=== PATIENT | male | born 1990 | race Caucasian/White ===

== ENCOUNTER 2023-06-19 17:48 | Observation (INO) | payer OTHER, SELFPAY ==
[2023-06-19] VITALS (18 sets, daily range): BP systolic 135–156; BP diastolic 86–90; PULSE 76–116; RESP 16–22; TEMP 37–37.7; O2SAT 94–99; BMI 31.7; BMI 33.5
--- NOTE | 2023-06-19 17:51 | ECG_ITS ---
[facility] Test Date: 2023-06-19 Pat Name: Greg Khan Department: Room: - Gender: Male [employer]: : 1990 Requested By: [id number] Order Number: [id number] Reading MD: ROSA M ESPINOSA Measurements Intervals [place] Rate: 94 P: 53 IN: 118 QRS: 54 QRSD: 98 T: 42 QT: 342 QTc: 394 Interpretive Statements 1100 Sinus rhythm 2210 Short IN interval Non-Specific T wave inversion in III 9150 abnormal ECG No previous ECG available for comparison Electronically Signed On 06-20-2023 5:43:51 EDT by ROSA M ESPINOSA
--- NOTE | 2023-06-19 17:53 | ED_ITS ---
HPI - Overdose General Chief Complaint: Altered Mental Status Stated Complaint: altered-intoxication Time Seen by Provider: 06/19/23 17:51 Source: patient Mode of arrival: ambulance History of Present Illness HPI Narrative: patient is a 32-year-old male who presents to the emergency department by ambulance after his parents called 911 on finding him unresponsive on returning to the home. Parents reported to EMS that the patient was unresponsive but on EMS arrival, patient is awake, answering questions and reports drinking a significant amount of liquor today. He states he is a daily drinker. He denies using any drugs. He denies any suicidal ideation. He denies any falls or injuries. He has no pain at this time. He is cooperative on arrival to the Emergency Room. he is visibly intoxicated and smells of alcohol. Related Data Previous Rx's Medication Instructions Recorded clonidine HCl 0.1 mg tablet 0.1 mg PO BID #20 tabs 06/20/23 hyoscyamine sulfate 0.125 mg 0.125 mg PO ACHS PRN abdominal 06/20/23 sublingual tablet pain #20 tabs ondansetron 4 mg disintegrating 4 mg PO Q6H PRN nausea and 06/20/23 tablet vomiting #20 tabs Allergies Allergy/AdvReac Type Severity Reaction Status Date / Time Penicillins AdvReac Unknown Verified 06/19/23 17:53 Review of Systems ROS Constitutional Denies: fever or chills Cardiovascular Denies: chest pain Respiratory Denies: shortness of breath Gastrointestinal Denies: vomiting Integumentary/Breast Denies: rash Hematologic/Lymphatic Denies: easy bruising PFSH PFS Medical History (Updated 06/24/23 @ 00:00 by ) Family History (Updated 06/19/23 @ 22:09 by Nicky Scott) Mother No problems noted. Other Abuse, drug or alcohol Social History (Updated 06/20/23 @ 01:52 by Nicky Scott) Within the past year, how often did you have a drink containing alcohol: monthly or less Within the past year, how many standard drinks containing alcohol did you have on a typical day: 1 or 2 Within the past year, how often did you have six or more drinks on one occasion: monthly Total score: 2 Score interpretation: A score less than 4 is consistent with normal alcohol consumption. Do you use any of these nicotine containing products: smokeless tobacco Non-prescribed substance use: denies use Highest level of school completed/degree received: high school graduate Are you now , , , , never or living with a partner: don't know Little interest or pleasure in doing things: several days Feeling down, depressed, or hopeless: several days Feel stressed/tense/nervous/anxious/difficulty sleeping: rather much Life stressors: other Life stressor details: son not able to see Exam Narrative Exam Narrative: Gen.: Awake, alert, in no distress Head: Normocephalic, atraumatic ENT: Moist mucous membranes Respiratory: No respiratory distress Cardio: Regular rate and rhythm Extremities: Moves extremities equally, no injuries noted Psych: cooperative Neuro: slurred speech, no unilateral weakness noted. Patient is able to transfer himself from EMS prior to exam cart Skin: Warm, dry, intact Constitutional Vital Signs, click to edit/add: Last Vital Signs Temp 98.2 F 06/20/23 06:00 Pulse 81 06/20/23 07:52 Resp 18 06/20/23 06:00 BP 146/69 H 06/20/23 06:00 Pulse Ox 95 06/20/23 06:00 O2 Del Method Room Air 06/20/23 06:00 Course Vital Signs Vital signs: Vital Signs Pulse Rate 100 H 06/19/23 17:50 Respiratory Rate 18 06/19/23 17:50 Blood Pressure 135/86 06/19/23 17:50 Pulse Oximetry 95 06/19/23 17:50 Oxygen Delivery Method Room Air 06/19/23 17:50 Temperature 98.2 F 06/20/23 06:00 Pulse Rate 81 06/20/23 07:52 Respiratory Rate 18 06/20/23 06:00 Blood Pressure 146/69 H 06/20/23 06:00 Pulse Oximetry 95 06/20/23 06:00 Oxygen Delivery Method Room Air 06/20/23 06:00 MDM - Overdose MDM Narrative Medical decision making narrative: patient treated with IV fluids in the Emergency Room, CT of the brain was obtained, reviewed by the radiologist with no evidence of acute process. Lab studies show elevated lactic acid and elevated ethanol level at 392, patient will require multiple hours of observation and IV fluids before he is sober enough to be discharged to her response will alliance party. Discussed with Dr. Rivera who accepted the admission to [facility], telemetry. Patient is stable and agreeable at time of admission. Reevaluated by attending physician prior to admission. He maintains normal oxygen saturation, he had no deterioration of his mental status in the Emergency Room. Medical Records Attestation: I reviewed the patient's medical records. Lab Data Attestation: I reviewed the patient's lab results. Labs: Lab Results 06/19/23 Range/Units 17:57 WBC 9.3 (4.0-11.0) 10^3/uL RBC 6.02 (4.70-6.10) 10^6/uL Hgb 18.4 H (14.0-18.0) g/dL Hct 49.6 (42.0-54.0) % MCV 82.4 (80.0-94.0) fL MCH 30.6 (25.9-34.0) pg MCHC 37.1 H (29.9-35.2) g/dL RDW 11.6 (11.0-15.0) % Plt Count 247 (150-450) 10^3/uL MPV 8.6 L (9.5-13.5) fL Neut % (Auto) 74.8 (43.0-75.0) % Lymph % (Auto) 20.1 L (20.5-60.0) % Mason % (Auto) 4.0 (1.7-12.0) % Eos % (Auto) 0.1 L (0.9-7.0) % Baso % (Auto) 0.6 (0.2-2.0) % Neut # (Auto) 6.9 H (1.4-6.5) 10^3/uL Lymph # (Auto) 1.9 (1.2-3.8) 10^3/uL Mason # (Auto) 0.4 (0.3-0.8) 10^3/uL Eos # (Auto) 0.0 (0.0-0.7) 10^3/uL Baso # (Auto) 0.1 (0.0-0.1) 10^3/uL Abs Immat Gran (auto) 0.04 H (0.00-0.03) 10^3/uL Imm/Tot Granulo (auto) 0.4 (0.0-0.5) % PT 10.3 (9.0-11.6) sec INR 0.97 Sodium 139 (136-145) mmol/L Potassium 3.7 (3.5-5.1) mmol/L Chloride 100 (98-107) mmol/L Carbon Dioxide 26.9 (21.0-32.0) mmol/L Anion Gap 15.8 BUN 9.0 (7.0-18.0) mg/dL Creatinine 0.96 (0.70-1.30) mg/dL Est GFR ( Amer) >60 (>=60) Est GFR (Non-Af Amer) >60 (>=60) BUN/Creatinine Ratio 9.4 Glucose 99 (74-106) mg/dL Lactate 5.7 H* (0.4-2.0) mmol/L Calcium 8.4 L (8.5-10.1) mg/dL Total Bilirubin 0.9 (0.2-1.0) mg/dL AST 40 H (15-37) U/L ALT 42 (16-63) U/L Alkaline Phosphatase 58 (46-116) U/L Total Creatine Kinase 118 (39-308) U/L Troponin I High Sens 5.6 (4.0-76.1) pg/mL Total Protein 7.9 (6.4-8.2) g/dL Albumin 4.6 (3.4-5.0) g/dL Globulin 3.3 g/dL Albumin/Globulin Ratio 1.4 Salicylates <2.8 (<=19.9) mg/dL Acetaminophen <2.0 L (10.0-30.0) ug/mL Ethanol Quant 392 mg/dL Imaging Data CT scan - head: Attestation: I have reviewed the pertinent imaging results. Chest x-ray: Attestation: I have reviewed the pertinent imaging results. ECG Data Attestation: I personally reviewed and interpreted this ECG as follows: (normal sinus rhythm at a rate of ninety-four, T-wave inversion and nonspecific ST elevation similar to EKG 01/10/22. EKG reviewed by attending physician.) ECG interpretation date: 06/19/23 ECG interpretation time: 19:35 Discharge Plan Discharge Chief Complaint: Altered Mental Status Clinical Impression: Alcoholic intoxication, Altered mental status Patient Disposition: Admitted as Observation Time of Disposition Decision: 19:32 Condition: Good Discharge Date/Time: 06/19/23 20:15
[2023-06-19 18:11] LABS: Basophils Absolute Auto 0.1 10^3/uL (0.0-0.1); Basophils Percent Auto 0.6 % (0.2-2.0); Eosinophils Percent Auto 0.1 % (0.9-7.0); Hematocrit 49.6 % (42.0-54.0); Hemoglobin 18.4 g/dL (14.0-18.0); Immature Granulocytes Abs Auto 0.04 10^3/uL (0.00-0.03); Immature Granulocytes Pct Auto 0.4 % (0.0-0.5); Lymphocytes Absolute Auto 1.9 10^3/uL (1.2-3.8); Lymphocytes Percent Auto 20.1 % (20.5-60.0); Mean Corpuscular HGB Conc 37.1 g/dL (29.9-35.2); Mean Corpuscular Hemoglobin 30.6 pg (25.9-34.0); Mean Corpuscular Volume 82.4 fL (80.0-94.0); Mean Platelet Volume 8.6 fL (9.5-13.5); Monocytes Absolute Auto 0.4 10^3/uL (0.3-0.8); Neutrophils Absolute Auto 6.9 10^3/uL (1.4-6.5); Neutrophils Percent Auto 74.8 % (43.0-75.0); Platelet Count 247 10^3/uL (150-450); Red Blood Count 6.02 10^6/uL (4.70-6.10); Red Cell Distribution Width 11.6 % (11.0-15.0); White Blood Count 9.3 10^3/uL (4.0-11.0)
[2023-06-19 18:22] LABS: Alanine Aminotransferase 42 U/L (16-63); Albumin Globulin Ratio 1.4; Albumin Level 4.6 g/dL (3.4-5.0); Alkaline Phosphatase 58 U/L (46-116); Anion Gap 15.8; Aspartate Amino Transferase 40 U/L (15-37); BUN Creatinine Ratio 9.4; Bilirubin Total 0.9 mg/dL (0.2-1.0); Calcium 8.4 mg/dL (8.5-10.1); Carbon Dioxide 26.9 mmol/L (21.0-32.0); Chloride 100 mmol/L (98-107); Estimated GFR (African America >60 (>=60); Estimated GFR (Non-African Ame >60 (>=60); Globulin 3.3 g/dL; Glucose 99 mg/dL (74-106); Potassium 3.7 mmol/L (3.5-5.1); Sodium 139 mmol/L (136-145); Total Protein 7.9 g/dL (6.4-8.2)
--- NOTE | 2023-06-19 18:24 | CT_ITS ---
The [address] [address] Patient Name: LISA FISCHER MRN: [id number] date: 1990 Sex: M Assigned Patient Location: ER Current Patient Location: ED.MAIN Accession/Order Number: [id number] Exam Date: 06/19/2023 18:14 Report Date: 06/19/2023 19:06 At the request of: TWILA URBINA Procedure: CT head/brain wo con EXAMINATION: CT head/brain wo con, 06/19/2023 6:14 PM EDT HISTORY: Alcohol intoxication, altered COMPARISON: None. TECHNIQUE: CT scan of the head was performed without IV contrast. CT dose reduction technique was used, including Automated Exposure Control. FINDINGS: BRAIN PARENCHYMA/CSF SPACES: Ventricles are normal in size for age. There is no hemorrhage, mass effect or midline shift. There are no other significant findings. PARANASAL SINUSES: Clear. SKULL BASE AND CALVARIUM: Normal. EXTRACRANIAL SOFT TISSUES: Normal. CT/CT head/brain wo con IMPRESSION: No acute intracranial findings. Electronically authenticated by: LETICIA BECERRA Date: 06/19/2023 19:06
[2023-06-19] MEDS: 0.9 % SODIUM CHLORIDE 1,000 ML 999 ML IV (18:26)
[2023-06-19 18:27] LABS: Creatine Kinase 118 U/L (39-308); Ethanol 392 mg/dL; Salicylate <2.8 mg/dL (<=19.9); Troponin I High Sensitivity 5.6 pg/mL (4.0-76.1)
[2023-06-19 18:28] LABS: INR 0.97; Prothrombin Time 10.3 sec (9.0-11.6)
[2023-06-19 18:33] LABS: Acetaminophen <2.0 ug/mL (10.0-30.0)
[2023-06-19 18:35] LABS: Lactate/Lactic Acid 5.7 mmol/L (0.4-2.0)
--- NOTE | 2023-06-19 18:57 | XR_ITS ---
The [address] [address] Patient Name: LISA FISCHER MRN: [id number] date: 1990 Sex: M Assigned Patient Location: ED.MAIN Current Patient Location: ED.MAIN Accession/Order Number: [id number] Exam Date: 06/19/2023 19:00 Report Date: 06/19/2023 19:48 At the request of: TWILA URBINA Procedure: XR chest 1V EXAMINATION: XR chest 1V 06/19/2023 4:47 PM PDT HISTORY: Altered mental status TECHNIQUE: Single frontal view of the chest acquired. COMPARISONS: None. FINDINGS: Lines/tubes/other: None. Heart and mediastinum: Likely within normal limits given degree of patient rightward rotation. Bones: No acute osseous abnormality. Lungs: The lungs are clear. There is no evidence of pneumonia or pulmonary edema. Pleura: There is no significant pleural effusion or pneumothorax. Other: None. XR/XR chest 1V IMPRESSION: No acute cardiopulmonary abnormality. Electronically authenticated by: DILLON KEEN Date: 06/19/2023 19:48
[2023-06-19] MEDS: 0.9 % SODIUM CHLORIDE 1,000 ML 150 ML IV (21:05)
[2023-06-19] MEDS: OMEPRAZOLE 40 MG CAPSULE.DR PO (21:05)
[2023-06-19] MEDS: MULTIVITAMIN TABLET 1 TAB PO (21:06)
[2023-06-19] MEDS: CLORDIAZEPOXIDE HCl 25 MG CAPSULE PO (21:06)
[2023-06-19] MEDS: THIAMINE MONONITRATE (VIT B1) 100 MG TABLET PO (21:06)
[2023-06-19] MEDS: CLONIDINE HCL 0.1 MG TABLET PO (21:06)
[2023-06-19 21:25] LABS: Lactate/Lactic Acid 5.8 mmol/L (0.4-2.0)
[2023-06-19] MEDS: ONDANSETRON PF 4 MG/2 ML VIAL IV (22:43)
--- NOTE | 2023-06-19 22:46 | PC.NURSE ---
Pt stated, that he does not drink daily but he does patricio drink when he is sad. Patient believes he drank approximately 1 gallon vodka over a 24 hr period and that is when his mother found him unresponsive today.
[2023-06-20] VITALS (7 sets, daily range): BP systolic 146; BP diastolic 69; PULSE 75–96; RESP 18; TEMP 36.8; O2SAT 93–95
[2023-06-20] MEDS: 0.9 % SODIUM CHLORIDE 1,000 ML 150 ML IV (03:44)
[2023-06-20 06:01] LABS: Lactate/Lactic Acid 2.7 mmol/L (0.4-2.0)
[2023-06-20 08:01] LABS: Lactate/Lactic Acid 2.1 mmol/L (0.4-2.0)
--- NOTE | 2023-06-20 08:18 | CM.NOTE ---
Rounds made with teo Allred for discharge to home today. Pt in agreement to alcohol rehab as outpatient. Pt states he has seen [facility] in the past but did not follow through with treatment.
[2023-06-20] MEDS: OMEPRAZOLE 40 MG CAPSULE.DR PO (08:48)
[2023-06-20] MEDS: THIAMINE MONONITRATE (VIT B1) 100 MG TABLET PO (08:48)
[2023-06-20] MEDS: MULTIVITAMIN TABLET 1 TAB PO (08:48)
[2023-06-20] MEDS: CLONIDINE HCL 0.1 MG TABLET PO (08:48)
[2023-06-20] MEDS: ACETAMINOPHEN 500 MG TABLET 1000 MG PO (08:54)
[2023-06-20] MEDS: ONDANSETRON PF 4 MG/2 ML VIAL IV (08:55)
[2023-06-20] MEDS: CLORDIAZEPOXIDE HCl 25 MG CAPSULE PO (08:55)
--- NOTE | 2023-06-20 09:12 | CM.NOTE ---
Called [facility] for outpatient appointment for chemical dependency. Pt has missed several appointments and will need to complete no show policy online (includes class). Information provided to pt along with information for [facility]. Pt verbalizes his mother works and he would prefer to set up his own appointment.
[2023-06-20] MEDS: HYOSCYAMINE SULFATE 0.125 MG TAB.SUBL PO (09:39)
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
--- NOTE | 2023-06-22 14:11 | CM.DCFOLLOWU ---
No answer 1st attempt.
--- NOTE | 2023-06-23 13:58 | CM.DCFOLLOWU ---
Person spoke with: Greg How are you feeling? Much better How is your pain? Denies Did you understand your discharge instructions? Yes Do you have any questions about your discharge instructions? No Were you given any prescriptions at discharge? No Were you able to get your prescriptions filled? N/A Do you understand how to take your medications as ordered? Yes Do you have any questions about your follow up appointment and do you plan to keep your follow up appointment? Had counseling appt today- everything is good Is there anything else that you would like to discuss? No Questions/Comments/Concerns/Other:
== END 2023-06-20 10:51 | disposition home or self-care (01) ==
LOC: ER 20:03 → MS 20:33
PROVIDERS: Physician Assistant; Admitting Provider Family Medicine; Emergency Provider Emergency Medicine; Visit Provider Family Medicine
DX: F10.129 Alcohol abuse with intoxication, unspecified (principal); E86.0 Dehydration; I10 Essential (primary) hypertension; R00.0 Tachycardia, unspecified; R79.89 Other specified abnormal findings of blood chemistry; Y90.8 Blood alcohol level of 240 mg/100 ml or more; F17.220 Nicotine dependence, chewing tobacco, uncomplicated; Z79.899 Other long term (current) drug therapy
CPT/HCPCS: 36415; 70450; 71045; 80053; 80179; 80307; 80320; 80329; 82550; 83605; 84484; 85025; 85610; 93005; 94761; 96361; 96374; 96376; 99285; G0378

== ENCOUNTER 2023-10-18 11:50 | Emergency (ER) | payer OTHER, SELFPAY ==
[2023-10-18 11:56] VITALS: BP 161/95; PULSE 78; RESP 18; TEMP 37; O2SAT 99; BMI 29.2
[2023-10-18 12:34] VITALS: BP 118/77; PULSE 53; RESP 18; O2SAT 99
--- NOTE | 2023-10-18 13:27 | CT_ITS ---
The [address] [address] Patient Name: LISA FISCHER MRN: [id number] date: 1990 Sex: M Assigned Patient Location: ER Current Patient Location: ER Accession/Order Number: [id number] Exam Date: 10/18/2023 13:52 Report Date: 10/18/2023 14:25 At the request of: TWILA URBINA Procedure: CT lumbar spine wo con EXAMINATION: CT lumbar spine wo con HISTORY: low back pain increasing in severity COMPARISON: No relevant comparison available. TECHNIQUE: Axial, Coronal, and Sagittal images were created without IV contrast. Dose reduction techniques were achieved by using automated exposure control and/or adjustment of mA and/or kV according to patient size and/or use of iterative reconstruction technique. FINDINGS: VERTEBRAL BODIES: Minimal grade 1 anterior listhesis of L5 on S1 secondary to bilateral pars interarticularis defects. FACET JOINTS: No disruption or abnormal widening. DISCS: L5-S1 broad-based posterior disc bulging with left paracentral protrusion causing moderate central canal and displacing the descending left S1 nerve root. CENTRAL CANAL: No spinal stenosis or evidence of hemorrhage. PARASPINAL AREA: No visible mass. CT/CT lumbar spine wo con IMPRESSION: 1. L5-S1 degenerative disc disease resulting in moderate central canal and moderate-marked bilateral foramen narrowing. 2. 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 No comparison studies. Electronically authenticated by: HAMLET CHAPIN Date: 10/18/2023 14:25
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
[2023-10-18] MEDS: KETOROLAC TROMETHAMINE 60 MG/2 ML VIAL IM (13:39)
[2023-10-18] MEDS: OXYCODONE HCL/ACETAMINOPHEN 5MG/325MG 1 TAB PO (13:40)
[2023-10-18] MEDS: ORPHENADRINE 60 MG/ 2 ML VIAL IM (13:40)
[2023-10-18 14:04] VITALS: BP 134/78; PULSE 65; RESP 18; O2SAT 100
== END 2023-10-18 14:47 | disposition home or self-care (01) ==
PROVIDERS: Emergency Provider Emergency Medicine Emergency Medical Services
DX: M54.42 Lumbago with sciatica, left side (principal); J45.909 Unspecified asthma, uncomplicated; F41.9 Anxiety disorder, unspecified; F32.A Depression, unspecified; I10 Essential (primary) hypertension; F17.220 Nicotine dependence, chewing tobacco, uncomplicated
CPT/HCPCS: 72131; 96372; 99285; J1885; J2360

== ENCOUNTER 2025-05-14 11:48 | Outpatient (OUT) | payer SELFPAY ==
--- OUTSIDE RECORDS SUMMARY | 2025-05-14 11:53 | XMS_ITS | Encounter Summary ---
Author Organization [facility] Address [address] [place] [address] Care Team Providers Care Linter Tender Name Role Phone Frank Wilder MD Primary Care Provider + [phone] Karie Bingham APRN.JAW SKINNER Unavailable + [phone] Source Comments In the event this information is protected by the Federal Confidentiality of Alcohol and Drug AbusePatient Records regulations: The Federal rules restrict any use of the information to criminally investigate or prosecute any alcohol or drug abuse patient.[facility] Encounter Details Date Type Department Care Team (Late st Contact Info) Description 08/01/2019 Patient Msg Psychology [address] [id number] [place] [facility] [address] [place], [place] [id number] Resources Social History Tobacco Use Types Packs/Day Years Used Date Smoking Tobacco: Former Smokeless Tobacco: Current Chew Alcohol Use Standard Drinks/Week Comments Yes 0 (1 standard drink = 0.6 oz pure alcohol) has not drank in 1.5 weeks - 1-2 pints of vodak daily Sex and Gender Information Value Date Recorded Sex Assigned at Not on file Legal Sex Male 2:23 AM EDT Gender Identity Not on file Sexual Orientation Not on file documented as of this encounter Plan of Treatment Not on file documented as of this encounter Visit Diagnoses Not on filedocumented in this encounter Care Teams Linter Tender Relationship Specialty Start Date End Date Frank Wilder MD [address] [place] [address] PCP - General Family Medicine 01/24/18 Karie Bingham, TAMMY.YESENIA [address] [place] [address] Production Engine Repairer Family Medicine 11/14/24 documented as of this encounter
--- OUTSIDE RECORDS SUMMARY | 2025-05-14 11:53 | XMS_ITS | Patient Health Record ---
[facility] Address [address] [place] [address] Care Team Providers Care Sales And Marketing Director Name Role Phone Warren Harley Primary Care Provider [phone] Allergies Allergen (clinical drug ingredient) Drug/Non Drug Allergy documented on EMR Reaction Allergy Type Onset Date Status Penicillin (uncoded) rash Allergy Active Reason For Referral No Information Medications Medication SIG (Take, Route, Fr equency, Duration) Notes Start Date End Date Status Podofilox 0.5 % 1 application to aff ected area Externally Twice a day for 3 days, then off for 4 days, May repeat this for 4 weeks; Duration: 3 days 04/26/2019 Ac tive Social History Tobacco Use: Social History Observation Description Date Details (start date - stop date) Former Smoker NA - NA Tobacco Screen: Question Answer Notes When did you start smoking 17 Are you a: former smoker How long has it been since you last smoked? 5-10 years Sexual Hx: Question Answer Notes Had sex in the last 12 months (vaginal, oral, or anal)? Yes with Women only Use protection? Yes How often? Some of the time Prevention Strategies discussed: Condoms Have you ever had an STD? Yes GC? Yes Alcohol Screening: Question Answer Notes Did you have a drink contain ing alcohol in the past year? Yes How often did you have a dri nk containing alcohol in the past year? Four or more times a week (4 points) How many drinks did you have on a typical day when you were drinking in the past year? 5 or 6 (2 points) How often did you have six o r more drinks on one occasion in the past year? Weekly (3 points) Points 9 Interpretation Positive Depression Screening (PHQ-9): Question Answer Notes Little interest or pleasure in doing things More than half the days Feeling down, depressed, or hopeless More than h halfway the days Trouble falling or staying asleep, or sleeping t oo much Nearly every day Feeling tired or having little energy Several da ys Poor appetite or overeating Not at all Feeling bad about yourself-o r that you are a failure or have let yourself or your family down Several days Trouble concentrating on thi ngs, such as reading the newspaper or watching television More than half the days Moving or speaking so slowly that other people could have noticed. Or the opposite being so fidgety or restless that you have been moving around a lot more than usual More than half the days Thoughts that you would be b erma off , or of hurting yourself in some way Not at all Total Score 13 Intepretation Moderate Depression Problems Problem Type SNOMED Code ICD Code Onset Dates Problem Status W/U Status Risk Notes Problem Anxiety (00338774) Anxiety (F41.9) Active confirmed Problem Alcohol abuse (15118088) Alcohol abuse (F10.10) Active confirmed Problem Genital warts (044517616) Genital warts (A63.0) Active confirmed Plan Of Treatment No Information Insurance Providers Payer Name Payer Address Payer Phone Subscriber Number Group Number Insured Name Patient Relationship to Insured Coverage Start Date Coverage End Date z[employer] -termed [address] [place] [address] [id number] LISA KHAN Self - patient is the insured [facility] [employer]- termed 22 [address] [place] [address] [id number] LISA KHAN Self - patient is the insured 9 Medical (General) History Medical History History ICD Code anxiety depression PTSD Hospitalization History Reason Date(Month/Year) ICU-alcohol 03/2019
--- OUTSIDE RECORDS SUMMARY | 2025-05-14 11:53 | XMS_ITS | Clinical Summary ---
Author Organization [facility] Address [address] [place] [address] Care Team Providers Care Baker Operator Automatic Name Role Phone Frank Wilder MD Primary Care Provider [phone] Karie Bingham APRN.LANDSCAPE FOREMAN Unavailable [phone] Allergies Active Allergy Reactions Criticality Noted Date Comments Penicillin Intolerance 01/12/2018 Medications * This document contains information received from the source organization and may not represent a complete record from that organization. albuterol HFA (PROVENTIL HFA, VENTOLIN HFA) 90 mcg/actuation inhalerIndicati ons:Sinobronchi tis Inhale 2 Puffs as instructed every 4 hours as needed for Wheezing/Shortn ess of Breath. 18 g 2 1 Active fluticasone (FLONASE) 50 mcg/actuation nasal sprayIndication s:Sinobronchiti s Use 2 Sprays in each nostril once daily. 1 Bottle 2 1 Active benzonatate (TESSALON PERLE) 100 mg capsuleIndicati ons:Sinobronchi tis Take 1 capsule by mouth three times daily as needed. 30 capsule 1 Active Active Problems No known active problems Immunizations Immunization Administration Dates Next Due Haemophilus influenzae b (Hb OC) vaccine, 4-dose series (HIBTITER) 02/26/1992,1991,1991 diphtheria tetanus pertussis (DTP) vaccine 02/25,1991,1991 human papillomavirus (HPV9) vaccine, 9 valent (GARDASIL 9) 04/25/2019 influenza (IIV4) vaccine, ag e 6 mo - 64 yr, quadrivalent (AFLURIA, FLULAVAL, FLUZONE) 07/25/2019 poliovirus (OPV) vaccine, tr ivalent, live, oral (ORIMUNE) 1991,1991 tetanus diphtheria pertussis (Tdap) vaccine, age 7+ yr (ADACEL, BOOSTRIX) 12/17/2020 Family History Medical History Relation Comments Cancer Paternal Grandfather Relation Status Comments Father Alive Mother Alive Paternal Grandfather Social History Tobacco Use Types Packs/Day Years Used Date Smoking Tobacco: Never Smokeless Tobacco: Current Chew Alcohol Use Standard Drinks/Week Comments Not Currently 0 (1 standard drink = 0.6 oz pur e alcohol) prn PHQ-2 Answer Date Recorded PHQ-2 score 0 12/17/2020 Area Deprivation Index Answer Date Tung rded National Score (1-100), lower number is lower ri sk Not on file 09/16/2020 State Score (1-10), lower number is lower risk N ot on file 09/16/2020 Data from: https://www.neighborhoodatlas.medicine.[facility]/. Last address used for calculation Not on file 09/16/2020 Sex and Gender Information Value Date Recorded Sex Assigned at Not on file Legal Sex Male 2:23 AM EDT Gender Identity Not on file Sexual Orientation Not on file Last Filed Vital Signs Vital Sign Reading Time Taken Comments Blood Pressure 129/72 12/17/2020 3:19 PM EST Pulse 80 12/17/2020 3:19 PM EST Temperature 36.5 C (97.7 F) 12/17/2020 3:19 PM EST Respiratory Rate 16 09/05/2019 12:2 8 PM EST Oxygen Saturation 96% 12/17/2020 3:19 PM EST Inhaled Oxygen Concentration - - Weight 103.4 kg (227 lb 14.4 oz) 12/17/2020 3:19 PM EST Height 190.5 cm (6' 3 ) 12/17/2020 3:19 PM EST Body Mass Index 28.49 12/17/2020 3:19 PM EST Plan of Treatment Health Maintenance Due Date Last Done Comments Anxiety Screening 2009 Depression Screening 2009 HIV Screening 2009 Hepatitis C Screening 2009 Hepatitis B Vaccine (1 of 3 - 19+ 3-dose series) 2010 Influenza Vaccine (#1) 2025 07/25/2019 DTaP,Tdap,Td Vaccine (5 - Td or Tdap) 12/17/2030 12/17/2020, 02/26/1992, 1991, Additional history exists Insurance [facility] MEDICA[facility] Care Teams Baker Operator Automatic Relationship Specialty Start Date End Date Frank Wilder MD [address] [place] [address] PCP - General Family Medicine 01/24/18 Karie Bingham APRN.YESENIA [address] [place] [address] Parts Fabricator Family Medicine 11/14/24
--- OUTSIDE RECORDS SUMMARY | 2025-05-14 11:53 | XMS_ITS | Clinical Summary ---
Author Organization [employer] [facility] Address [facility] [id number] [address] [place] [address] Care Team Providers Care Infrastructure Administrator Name Role Phone No Pcp, No Pcp Primary Care Provider Unavailabl e Allergies Active Allergy Reactions Criticality Noted Date Comments Penicillin Rash,Other (See Comments) Low 04/25/2019 Medications No known medications Active Problems Problem Noted Date Diagnosed Date Alcoholic intoxication without complication 10/10 Social History Tobacco Use Types Packs/Day Years Used Date Smoking Tobacco: Never Smokeless Tobacco: Current Chew Tobacco Cessation:Ready to Q uit: Not Asked; Counseling Given: Not Answered Alcohol Use Standard Drinks/Week Comments Never 0 (1 standard drink = 0.6 oz pur e alcohol) Hunger Screening Answer Date Recorded Within the past 12 months we worried whether our food would run out before we got money to buy more. Never True 09/28/2023 Within the past 12 months th e food we bought just didn't last and we didn't have money to get more. Never True 09/28/2023 Sex and Gender Information Value Date Recorded Sex Assigned at Not on file Legal Sex Male 8:47 PM EST Gender Identity Not on file Sexual Orientation Not on file Last Filed Vital Signs Vital Sign Reading Time Taken Comments Blood Pressure 147/93 09/28/2023 4:10 PM EST Pulse 78 09/28/2023 4:11 PM EST Temperature 37.1 C (98.7 F) 09/28/2023 4:04 PM EST Respiratory Rate 17 09/28/2023 4:11 PM EST Oxygen Saturation 94% 09/28/2023 4:11 PM EST Inhaled Oxygen Concentration - - Weight 108.9 kg (240 lb) 09/28/2023 4:01 PM EST Height 193 cm (6' 4 ) 09/28/2023 4:01 PM EST Body Mass Index 29.21 09/28/2023 4:01 PM EST Plan of Treatment Health Maintenance Due Date Last Done Comments Depression Screening 2003 Adult BMI Screening 09/28/2024 09/28/2023 Tobacco Screening 09/28/2024 09/28/2023 Influenza Vaccine 06/09/2025 07/25/2019 DTaP,Tdap and Td Vaccines (5 - Td or Tdap) 12/17/2030 12/17/2020, 02/26/1992, 1991, Additional history exists Medical Devices Not on file Insurance [employer] MED[employer] Care Teams Infrastructure Administrator Relationship Specialty Start Date End Date No Pcp, [place] [address] PCP - General Family Medicine 11/01/22
--- OUTSIDE RECORDS SUMMARY | 2025-05-14 11:53 | XMS_ITS | Patient Health Record ---
Author Organization [facility] [place] Address [address] [place] [address] Care Team Providers Care Staple Processing Machine Operator Name Role Phone SHANTA HERNANDEZ CNP Primary Care Provider [phone] Allergies Allergen (clinical drug ingredient) Drug/Non Drug Allergy documented on EMR Reaction Allergy Type Onset Date Status Penicillin Hives Drug Allergy Active Reason For Referral No Information Social History Tobacco Use: Social History Observation Description Date Details (start date - stop date) Former Smoker NA - 11/08/2012 Tobacco Use/Smoking Question Answer Notes Patient is a former smoker When did you stop smoking? 11/08/2012 How long has it been since you last smoked? > 10 years Alcohol Screen (Audit-C) Question Answer Notes Did you have a drink containing alcohol in the p ast year? No Points 0 Interpretation Negative Problems Problem Type SNOMED Code ICD Code Onset Dates Problem Status W/U Status Risk Notes Problem Lumbago with sciatica (655308298) Lumbago with sciatica (M54.40) Active confirmed Problem Alcohol intoxication (22800350) Alcohol intoxication (F10.129) Active confirmed Problem BP (high blood pressure) (I10) Active confirmed Plan Of Treatment Pending Test Test Name Order Date MRI Lumbar Spine w/o contrast 10/23/2023 Insurance Providers Payer Name Payer Address Payer Phone Subscriber Number Group Number Insured Name Patient Relationship to Insured Coverage Start Date Coverage End Date [employer] [place] [employer] [address] [place] [address] [id number] Greg Orantes Self - patient is the insured Medications Administered Medication Instructions Date of Administration Dosage Notes Kenalog 11/13/2023 80 mg 80 Ketorolac Tromethamine 11/13/2023 60 mg 60
[2025-05-14 12:10] LABS: Hematocrit 47.6 % (42.0-54.0); Hemoglobin 17.3 g/dL (14.0-18.0); Immature Granulocytes Abs Auto 0.01 10^3/uL (0.00-0.03); Immature Granulocytes Pct Auto 0.1 % (0.0-0.5); Lymphocytes Absolute Auto 2.1 10^3/uL (1.2-3.8); Mean Corpuscular HGB Conc 36.3 g/dL (29.9-35.2); Mean Corpuscular Hemoglobin 30.5 pg (25.9-34.0); Mean Corpuscular Volume 84.0 fL (80.0-94.0); Platelet Count 267 10^3/uL (150-450); Red Blood Count 5.67 10^6/uL (4.70-6.10); White Blood Count 6.7 10^3/uL (4.0-11.0)
[2025-05-14 13:41] LABS: Alanine Aminotransferase 23 U/L (16-63); Albumin Globulin Ratio 1.5; Albumin Level 4.4 g/dL (3.4-5.0); Alkaline Phosphatase 58 U/L (46-116); Anion Gap 9.7; Aspartate Amino Transferase 13 U/L (15-37); Blood Urea Nitrogen 7.0 mg/dL (7.0-18.0); Calcium 9.1 mg/dL (8.5-10.1); Carbon Dioxide 30.5 mmol/L (21.0-32.0); Chloride 106 mmol/L (98-107); Cholesterol 134 mg/dL (<=200); Estimated GFR (African America >60 (>=60 mL/min/1.73m^2); Estimated GFR (Non-African Ame >60 (>=60 mL/min/1.73m^2); Globulin 3.0 g/dL; Glucose 96 mg/dL (74-106); HDL Cholesterol 44 mg/dL (40-60); Potassium 4.2 mmol/L (3.5-5.1); Sodium 142 mmol/L (136-145); Thyroid Stimulating Hormone 1.559 uIU/mL (0.358-3.740); Total Protein 7.4 g/dL (6.4-8.2); Triglycerides 27 mg/dL (<=150); VLDL CHOLESTEROL 5.4 mg/dL
== END 2025-05-14 11:49 | disposition home or self-care (01) ==
PROVIDERS: Visit Provider Family Medicine
DX: E65 Localized adiposity (principal); E66.9 Obesity, unspecified; Z13.9 Encounter for screening, unspecified; Z13.1 Encounter for screening for diabetes mellitus; Z13.29 Encounter for screening for other suspected endocrine disorder; Z13.220 Encounter for screening for lipoid disorders; R53.83 Other fatigue; E11.9 Type 2 diabetes mellitus without complications; E55.9 Vitamin D deficiency, unspecified; E03.9 Hypothyroidism, unspecified; E88.810 Metabolic syndrome; I10 Essential (primary) hypertension; E78.2 Mixed hyperlipidemia
CPT/HCPCS: 36415; 80053; 80061; 83036; 83525; 84443; 85025